=== PATIENT | male | born 1990 | race Caucasian/White ===

== ENCOUNTER → 2018-02-02 | Outpatient (CLI) | payer OTHER ==
[~2018-02-02] MED LIST: BENZ100A PO; CIPR500 PO; HYDACE5 PO; HYDCOR1TOA TOP; OXYC5 PO; PSEU120ER PO
[2018-02-03 08:00] LABS: Specimen Source URINE
[2018-02-04 09:05] LABS: Source Urine
== END ==
LOC: LAB SHORT 19:00 → LAB 19:00
PROVIDERS: Registered Nurse
DX: R30.0 Dysuria (principal)
CPT/HCPCS: 87491; 87591

== ENCOUNTER → 2018-02-04 | Outpatient (CLI) | payer OTHER | END | disposition home or self-care (01) | LOC: LAB SHORT 13:06 → LAB EV 13:06 | DX: N39.0 Urinary tract infection, site not specified (principal) | CPT/HCPCS: 87086 ==

== ENCOUNTER → 2018-02-17 | Outpatient (CLI) | payer OTHER ==
[2018-02-17 16:44] LABS: Specimen Source URINE
[2018-02-18 10:13] LABS: Source Urine
== END ==
LOC: LAB EV 16:42 → LAB SHORT 16:42
PROVIDERS: Family Medicine
DX: A63.0 Anogenital (venereal) warts (principal)
CPT/HCPCS: 87491; 87591

== ENCOUNTER 2021-08-03 19:14 | Emergency (ER) | payer OTHER ==
[~2021-08-03] VITALS: Ht 175.3 cm; Wt 77.1 kg
== END 2021-08-03 21:48 | disposition home or self-care (01) ==
LOC: ER 19:14
DX: S61.212A Laceration without foreign body of right middle finger without damage to nail, initial encounter (principal); W26.8XXA Contact with other sharp object(s), not elsewhere classified, initial encounter
CPT/HCPCS: 12001; 73140; 90714; 99283-25

== ENCOUNTER 2023-01-09 08:53 | Emergency (ER) | payer OTHER ==
[~2023-01-09] VITALS: Ht 177.8 cm; Wt 86.2 kg
[2023-01-09] MEDS ORDERED: Amoxicillin500 MG PO ×2 (10:06)
== END 2023-01-09 10:21 | disposition home or self-care (01) ==
LOC: ER 08:53
DX: K04.7 Periapical abscess without sinus (principal); J06.9 Acute upper respiratory infection, unspecified
CPT/HCPCS: 99282